=== PATIENT | female | born 1990 | race Caucasian/White ===

== ENCOUNTER 2017-02-08 05:56 | Inpatient (IN) | payer MEDICAID ==
[~2017-02-08] VITALS: Ht 154.9 cm; Wt 66.4 kg
--- NOTE | ~2017-02-08 | DS ---
PATIENT'S NAME: NICOLETTE CUETO [facility] AGE: 26 Y [address] ROOM: [address] [address] LOCATION: BS ADMIT DATE: 02/08/2017 Discharge Summary DISCHARGE DATE: 02/11/2017 FAMILY PHYSICIAN: ATTENDING PHYSICIAN: Andrew Danielson CORRECTED WORK TYPE 03/13/17 AO DISCHARGE DIAGNOSES: 1. Status post section. 2. Placenta previa. 3. Thirty-six week intrauterine . 4. History of delivery. REASON FOR ADMISSION: Scheduled section. Operations during admission, primary low-transverse section. HOSPITAL COURSE: The patient is a 26-year-old female, who presented to Labor and Delivery at 36 weeks 6 days for scheduled section. She had a known placenta previa. She underwent a primary low transverse section without complications. Postoperatively, she did well. Her Gaviria catheter was removed. She is ambulating, urinating, and tolerating p.o. and desired to be discharged home on postoperative day #3. Her baby did require admission to the NICU for prematurity and IV antibiotics. DISCHARGE MEDICATIONS: Please see discharge MAR. INSTRUCTIONS: The patient was instructed no lifting greater than 15 pounds for 4 to 6 weeks[address] No [address] while on narcotics. Nothing in vagina for 6 weeks. She was also instructed to call for fever greater than 100.4, pain not controlled with pain medications, or if any area of her incision becomes red or looks affected. FOLLOWUP: The patient will follow up in 2 weeks for check with Dr. Danielson. MD VIELKA HOFFMAN/perlita /[id number] CORRECTED WORK TYPE 03/13/17 AO d: 02/28/17 1138 t: 03/16/17 1340, DISCHARGE SUMMARY
--- NOTE | ~2017-02-08 | OR ---
PATIENT'S NAME: NICOLETTE CUETO [facility] AGE: 26 Y [address] ROOM: [place] [address] LOCATION: GOBS ADMIT DATE: 02/08/2017 OR/Procedure Report DISCHARGE DATE: FAMILY PHYSICIAN: BARI COMER ATTENDING PHYSICIAN: ANDREW DANIELSON SURGEON: Andrew Danielson MD DRILL OPERATOR PNEUMATIC: Jessica Gallego MD DATE OF PROCEDURE: 02/08/2017 PREOPERATIVE DIAGNOSES: 1. Intrauterine , 36 weeks 6 days. 2. Placenta previa. POSTOPERATIVE DIAGNOSES: 1. Intrauterine , 36 weeks 6 days. 2. Placenta previa. PROCEDURE PERFORMED: Primary low transverse section. ANESTHESIA: Spinal. FINDINGS: Viable male with score of 8 and 9 and weight of 7 pounds 5 ounces. Posterior placenta previa. Placenta intact with 3-vessel cord. Normal uterus. Normal ovaries and fallopian tubes bilaterally. ESTIMATED BLOOD LOSS: 800 mL. COMPLICATIONS: None. INDICATIONS: The patient is a 26-year-old female with intrauterine 36 weeks 6 days, who presented to Labor and Delivery for scheduled secondary to known posterior placenta previa. The patient was counseled prior to the procedure. The risks including bleeding, infection, damage to surrounding organs and tissue including bowel, bladder, blood vessels, ureters, nerves. She is also counseled of needing additional procedures or hospitalizations due to any complications. DESCRIPTION OF PROCEDURE: The patient was taken operating room where spinal anesthesia was placed without complication. She was placed in dorsal supine position with leftward tilt. A Gaviria catheter was placed. She was then prepped and draped in the usual sterile fashion. A time-out was performed. Anesthesia was found to be adequate. A scalpel was used to make a Pfannenstiel incision and carried down to the underlying fascia. The fascial incision was scored. The fascial incision was then extended bilaterally with Marquez scissors. Promise's were then used to grasp the anterior aspect of the PATIENT'S NAME: NICOLETTE CUETO [facility] AGE: 26 Y [address] ROOM: [place] [address] LOCATION: [facility] ADMIT DATE: 02/08/2017 OR/Procedure Report DISCHARGE DATE: FAMILY PHYSICIAN: PHYSICIAN, NO ATTENDING PHYSICIAN: ANDREW DANIELSON fascia. It was dissected bluntly and sharply off the rectus muscles. The same was performed inferiorly. The rectus muscles were then in the midline. The peritoneum was identified and entered bluntly. The peritoneal incision was then extended. The bladder blade was placed for visualization. The scalpel was then used to make a transverse incision in the lower uterine segment. This was extended in a cephalad caudal direction. Artificial rupture of membranes was performed. The head was then delivered followed by the remainder of the fetus. The mouth and nose were bulb suctioned. The cord was then clamped and cut. Infant was taken to the waiting delivery team. Cord blood was obtained. The placenta was then expressed intact. There was noted to be some bleeding from the posterior aspect of the endometrium and uterine rivera where the placenta was attached in the lower uterine segment. Pressure was placed on this. Pitocin was already going. The patient received 0.2 mg of Methergine. The hysterotomy was then closed in a running locked fashion with 0 Chromic suture. Hemostasis was noted. The uterus was replaced into the abdominal cavity. Clots were removed. The hysterotomy was reexamined and hemostasis was again noted. The lower uterine segment was not noted to be filling with blood. The rectus muscles and fascia were inspected and noted to be hemostatic. The fascia was then closed in a running fashion using 0 Vicryl suture. The subcutaneous tissue was irrigated and any areas of bleeding were cauterized. The skin was then closed with 4-0 Monocryl in a subcuticular fashion, Steri-Strips, and a pressure dressing. Instrument, sponge, needle counts were correct prior to abdominal closure at the conclusion of the case. DISPOSITION: Mom stable. Baby in room with mom. MD VIELKA HOFFMAN/perlita /[id number] d: 02/08/17 1426 t: 02/11/17 1704, OPERATIVE SUMMARY
[~2017-02-08 05:56] MED LIST: ACETAMINOPHEN325 MG PO; PHENERGAN25 M1 PO; PRENATAL 1+1)(P1 TAB PO; SUDAFED30 MG PO
[2017-02-08 07:00] LABS: BASOPHIL # 0.1 K/uL (0.0-0.2); BASOPHIL % 0.4 %; EOSINOPHIL # 0.2 K/uL (0.0-0.5); EOSINOPHIL % 1.7 %; HEMATOCRIT 31.5 % (33.0-46.0); HEMOGLOBIN 10.5 g/dL (11.0-15.0); IMMATURE GRANULOCYTE # 0.2 K/uL (0.0-0.3); IMMATURE GRANULOCYTE % 1.5 %; LYMPHOCYTE # 2.9 K/uL (0.8-4.0); LYMPHOCYTE % 21.1 %; MCH 31.3 pg (27.0-34.0); MCHC 33.3 gm/dL (32.0-36.5); MCV 93.8 fl (83.0-98.0); MONOCYTE # 1.2 K/uL (0.0-1.0); MONOCYTE % 8.7 %; MPV 9.1 fl (9.4-12.4); NEUTROPHIL # (ANC) 9.2 K/uL (1.8-7.8); NEUTROPHIL % 66.6 %; NRBC % 0 /100WBC (0-0.00); PLATELET COUNT 633 K/uL (150-450); RBC 3.36 M/uL (3.50-5.00); RDW-CV 12.7 % (11.9-14.6); WBC 13.8 K/uL (4.0-11.0)
--- NOTE | 2017-02-08 17:01 | NUR ---
Last VS: T:97.9 P:82 R: 16 BP: 102/60 Pain ratin-4 Last pain med: Percocet Medicated at: 1341 Effective: Yes R Lung sounds: , L Lung sounds: Fundus: FIRM Lochia: SMALL-MOD Breasts: SOFT Nipples: INTACT Incision: , Incision appearance: DRSG ON Incision closure: Bowel sounds: Passing flatus: N Voiding well: Y Significant event: *.FRIAS DC'D AT 1600 W/400ML ORANGE URINE OUT. IV SALINED LOCKED. TO NICU TO SEE BABY AT 1715
--- NOTE | 2017-02-09 03:26 | NUR ---
Last VS: T:97.5 P:72 R: 14 BP: 108/66 Pain ratin. Last pain med: 2 NORCO Medicated at: 0307 Effective: Partial relief R Lung sounds: clear, L Lung sounds: clear Fundus: firm, midline Lochia: small, rubra Breasts: soft Nipples: intact/tender Incision: low, transverse Incision appearance: Dressing CDI Incision closure: Bowel sounds: hypoactive Passing flatus: no Voiding well: voids well on own Significant event: VSS, walks to NICU to see babe, pumps, cert turned in, paternity papers in room--needs notarized. Independent with cares
[2017-02-09 05:26] LABS: BASOPHIL # 0.1 K/uL (0.0-0.2); BASOPHIL % 0.5 %; EOSINOPHIL # 0.2 K/uL (0.0-0.5); EOSINOPHIL % 1.3 %; HEMATOCRIT 30.2 % (33.0-46.0); HEMOGLOBIN 9.9 g/dL (11.0-15.0); IMMATURE GRANULOCYTE # 0.1 K/uL (0.0-0.3); IMMATURE GRANULOCYTE % 0.7 %; LYMPHOCYTE # 2.7 K/uL (0.8-4.0); LYMPHOCYTE % 19.5 %; MCH 31.1 pg (27.0-34.0); MCHC 32.8 gm/dL (32.0-36.5); MONOCYTE # 1.6 K/uL (0.0-1.0); MONOCYTE % 11.8 %; NEUTROPHIL % 66.2 %; NRBC % 0 /100WBC (0-0.00); PLATELET COUNT 608 K/uL (150-450); RBC 3.18 M/uL (3.50-5.00); RDW-CV 12.6 % (11.9-14.6); WBC 13.6 K/uL (4.0-11.0)
--- NOTE | 2017-02-09 15:05 | NUR ---
Consult received to meet with mom and significant other. Met with Lia today at bedside. Introduced myself and the role of the CM department. Lia (Esa) has an extensive mental health history with PTSD, Bipolar, Manic Depressive, and Schizophrenic tendencies when in Manic state. She has a history of addiction to marijuana, but has been clean for 6 years. She has 3 other boys that she no longer has custody of her older boys. Stoney and Jose Juan have been adopted and live in [place]. She states that she still has joint custody with Houston who is 4 and lives in [place] with his biological father, but that she has not seen him in one year due to finances. I also met with LINDSAY Rivera. Krishna was very upset earlier today because he found out that he cannot be listed on the certificate because Lia is still legally to a man in [place]. This man is not the father of any of her children. They both state that they are going to get a program support specialist to help with the divorce process. I instructed them to contact Medicaid and inform them of Lucio's . I also provided her with information on community resources in the [facility]. I discussed signs and symptoms of post depression and provided her with reading material to refer to. She states that her mom is currently staying at the [facility] and is going to be here to help support them while Lucio is in the NICU. Lia and Krishna state they have all necessary items for baby. Will continue to follow and offer supports as needed.
--- NOTE | 2017-02-09 18:00 | NUR ---
02/09/17 1745: In Nicu @ intervals. VSS. Last [place] @ 1219. Sia @ 6398. Nicoderm patch on. Will have repeat cbc in am,Platelets 600+. Low abd. inc. Intact w/ suture and steri. Passing gas. Breastpump equipment in room. Vss.
--- NOTE | 2017-02-10 05:33 | NUR ---
VSS. Pt independent and walking the halls. Fundus firm and midline. Pt states passing gas. Steri-strips to ABD. Dry and intact. 2Norco and Mortin at 0144. SL to Right wrist. Pt pumping, will walk to NICU to see baby.
[2017-02-10 05:59] LABS: BASOPHIL # 0.1 K/uL (0.0-0.2); BASOPHIL % 0.6 %; EOSINOPHIL # 0.3 K/uL (0.0-0.5); EOSINOPHIL % 2.6 %; HEMATOCRIT 27.4 % (33.0-46.0); IMMATURE GRANULOCYTE # 0.1 K/uL (0.0-0.3); IMMATURE GRANULOCYTE % 1.1 %; LYMPHOCYTE # 3.7 K/uL (0.8-4.0); LYMPHOCYTE % 32.3 %; MCH 30.9 pg (27.0-34.0); MCHC 32.8 gm/dL (32.0-36.5); MCV 94.2 fl (83.0-98.0); MONOCYTE # 1.2 K/uL (0.0-1.0); MONOCYTE % 10.5 %; MPV 9.1 fl (9.4-12.4); NEUTROPHIL % 52.9 %; NRBC % 0 /100WBC (0-0.00); PLATELET COUNT 566 K/uL (150-450); RBC 2.91 M/uL (3.50-5.00); RDW-CV 12.7 % (11.9-14.6); WBC 11.4 K/uL (4.0-11.0)
--- NOTE | 2017-02-10 17:49 | NUR ---
Last VS: T:98.5 P:75 R: 14 BP: 94/51 Pain ratin-5 Last pain med: Stambaugh(1) Medicated at: 1542 Effective: Yes R Lung sounds: , L Lung sounds: Fundus: FIRM Lochia: SMALL Breasts: FILLING Nipples: TENDER, LANOLIN OINT GIVEN Incision appearance: APPROXIMATED Incision closure: PFANNENSTEIL C/S INC Bowel sounds: Passing flatus: Y Voiding well: Y Significant event: *.UP AD JACKIE, BACK & FORTH TO NICU TO SEE/FEED BABY. STAYING UNTIL TMRW.
[2017-02-11] MEDS ORDERED: APNO TOP (13:28)
[2017-02-11] MEDS ORDERED: MOTRIN800 MG PO (13:29)
[2017-02-11] MEDS ORDERED: NORCO 5-325 TA1 EACH PO (13:31)
== END 2017-02-11 16:10 | disposition disaster alternative care site (69) | DRG 766 ==
LOC: GOBS 05:56
PROVIDERS: ADMIT Obstetrics & Gynecology
PROC: 10D00Z1 Extraction of Products of Conception, Low, Open Approach (ICD-10-PCS; principal; 2017-02-08)
DX: O44.03 Complete placenta previa NOS or without hemorrhage, third trimester (principal); Z37.0 Single live birth; Z3A.36 36 weeks gestation of pregnancy
CPT/HCPCS: J0690; J1885; J2210; J7120

== ENCOUNTER 2017-03-23 02:49 | Day surgery (SDC) | payer MEDICAID ==
[~2017-03-23] VITALS: Ht 152.4 cm; Wt 54.9 kg
--- NOTE | ~2017-03-23 | ER ---
PATIENT'S NAME: NICOLETTE CUETO [facility] AGE: 26 Y [address] ROOM: [place] [address] LOCATION: [facility] [place] ADMIT DATE: 03/23/2017 ER/Outpatient Report DISCHARGE DATE: FAMILY PHYSICIAN: PHYSICIAN, NO ATTENDING PHYSICIAN: Delphine LONGORIA (Jethro) CHIEF COMPLAINT: Abdominal pain. HISTORY OF PRESENT ILLNESS: The patient developed a right-sided abdominal pain with nausea starting last evening. It began to worsen throughout the night, she ultimately came in. She did have a 6 weeks ago and has had some pain at the right aspect of her scar, but this feels different to her. She denies any fevers with this, but has had some nausea. No other acute issues. No other abdominal surgeries. Denies any change in bowel or bladder habits. No other acute issues. She did start the control patch recently. She states she has not been sexually active since her . PAST MEDICAL HISTORY: Documented on the record and reviewed by me. SOCIAL HISTORY: Documented on the record and reviewed by me. MEDICATIONS: Documented on the record and reviewed by me. ALLERGIES: DOCUMENTED ON THE RECORD AND REVIEWED BY ME. REVIEW OF SYSTEMS: All systems reviewed and negative except as noted in the HPI. PHYSICAL EXAMINATION: VITAL SIGNS: Blood pressure 130/74, pulse 69, respiratory rate is 18, temperature 98.0, and SpO2 is 98% on room air. Pain is rated 8/10. GENERAL: Age-appropriate female, obvious discomfort on the left lateral decubitus position on the exam table, in no obvious pain or distress. NEURO: The patient is awake and alert. GCS 15. No focal deficits. No obvious asymmetry. HEENT: Normocephalic, atraumatic. Eyes are PERRL. Oropharynx is clear. NECK: Supple. Trachea is midline. CHEST: Heart has regular rate and rhythm. No murmurs. Lungs are clear to PATIENT'S NAME: NICOLETTE CUETO [facility] AGE: 26 Y [address] ROOM: [address] [address] LOCATION: [facility] [place] ADMIT DATE: 03/23/2017 ER/Outpatient Report DISCHARGE DATE: FAMILY PHYSICIAN: PHYSICIAN, NO ATTENDING PHYSICIAN: LAKS,Shachar (Jethro) auscultation bilateral with no rhonchi, wheezes, or rales. ABDOMEN: Notable for marked tenderness with no masses in the right lower quadrant. Pain is most prominent at McBurney's point. Obturator and psoas signs are equivocal. There is no rebound directly. Guarding is minimal. BACK: Normal to inspection and palpation. No CVA tenderness. EXTREMITIES: Warm and well perfused. No abnormalities or deformities. SKIN: Clean, dry, and intact. LABORATORY DATA AND X-RAYS: CT of the abdomen is concerning for appendicitis. Labs: CMS without appreciable abnormality other than a CO2 of 13.9. Renal function and LFTs within appropriate limits. Amylase and lipase are not elevated. HCG is below detectable threshold. White count is elevated at 15.1, hemoglobin 12.8, platelets of 386. INR is below 1. IMPRESSION: Appendicitis. EMERGENCY DEPARTMENT COURSE: The patient is diagnosed with appendicitis on exam and imaging. Urinalysis was pending. The patient clinically has appendicitis, CT confirms. She will be taken to the operating room by Dr. Longoria for further evaluation and treatment. Symptoms were managed with Zofran and 2 doses of fentanyl, which helped to control her pain. She remained otherwise stable and was taken to the OR in good condition. MD DAPHNE THAYER/perlita /[id number] d: 03/23/17 08 t: 03/28/17 0952, OUTPATIENT REPORT
--- NOTE | ~2017-03-23 | OR ---
PATIENT'S NAME: NICOLETTE CUETO [facility] AGE: 26 Y [address] ROOM: [place] [address] LOCATION: [facility] [place] ADMIT DATE: 03/23/2017 OR/Procedure Report DISCHARGE DATE: FAMILY PHYSICIAN: PHYSICIAN, NO ATTENDING PHYSICIAN: Delphine LONGORIA (Jethro) SURGEON: Delphine Longoria MD (Jake) PRODUCTION UNDERWRITER: DATE OF PROCEDURE: 03/23/2017 PREOPERATIVE DIAGNOSIS: Acute appendicitis. POSTOPERATIVE DIAGNOSIS: Acute appendicitis. PROCEDURE PERFORMED: Laparoscopic appendectomy. ANESTHESIA: General endotracheal anesthesia. COMPLICATIONS: None. ESTIMATED BLOOD LOSS: Minimal. DRAINS: None. FINDINGS: Early acute nonperforated appendicitis. SPECIMENS: Appendix. PQRI: SCDs were placed on prior to the case and were on throughout. Chemoprophylaxis for DVT was not indicated given this very brief operation and completely ambulatory patient. INDICATIONS FOR PROCEDURE: A 26-year-old woman with 1-day history of right lower quadrant abdominal pain that was clinically and radiographically suspicious for acute appendicitis. She presents for laparoscopic appendectomy. DETAILS OF PROCEDURE: After informed consent was obtained, the patient was brought to the operating room and placed in supine position. All pressure points were padded. The left arm was tucked. General endotracheal anesthesia was induced. The abdomen was prepped and draped in usual sterile fashion. A supraumbilical 5-mm incision was made after 0.5% Marcaine with epi was introduced into the wound. A 5-mm bladeless trocar introduced into the abdominal cavity under direct vision from the Optiview port by 5-mm 0-degree scope. Pneumoperitoneum was achieved. Abdominal cavity was inspected. No other abnormalities could be noted. An additional 12-mm suprapubic trocar was PATIENT'S NAME: NICOLETTE CUETO [facility] AGE: 26 Y [address] ROOM: [place] [address] LOCATION: [facility] [place] ADMIT DATE: 03/23/2017 OR/Procedure Report DISCHARGE DATE: FAMILY PHYSICIAN: PHYSICIAN, NO ATTENDING PHYSICIAN: Delphine LONGORIA) placed through the previous incision under direct visualization from the laparoscope as was a left lower quadrant 5-mm trocar under direct visualization from the laparoscope taking great care not to injure any intraabdominal structures. The abdominal cavity was inspected. No other abnormalities were noted. The appendix was identified and noted to be mildly and acutely inflamed without perforation. It was elevated towards the anterior abdominal wall. A window was created at the base of the mesoappendix with the [place] dissector. An Lowden 45-mm stapler with a GI load was then fired across the base of the appendix at the junction with the cecum and a very brief burst of electrocautery was used to achieve hemostasis on the staple line taking great care to only use the electrocautery for very brief period of time on low setting. Hemostasis was achieved and an Lowden 45-mm stapler on the mesoappendix was then fired and the staple line was carefully inspected. No bleeding could be noted. The appendix was placed in the Endopouch and removed via the suprapubic trocar site. Trocar reintroduced and pneumoperitoneum reachieved. The abdominal cavity was thoroughly irrigated until return of clear effluent. The rest of the abdominal cavity was inspected. The uterus was inspected and was normal. There were other abnormalities noted. Irrigations through all quadrants until return of clear effluent was performed. Thus, both staple lines were carefully inspected and were noted to be hemostatic. An 0 Vicryl suture on a suture passer was then used to close the suprapubic trocar site under direct visualization from the laparoscope. No bleeding could be noted. Left lower quadrant trocars were removed under direct visualization from the laparoscope. No bleeding could be noted. Pneumoperitoneum was decompressed. Last trocar was removed and all the wounds were closed with 4-0 Monocryl subcuticular suture. Sterile dressing was applied. The patient was awakened and taken back to recovery in stable condition. MD DEREK TALAVERA (JAKE)/perlita /[id number] d: t: 03/23/17 0750, OPERATIVE SUMMARY
--- NOTE | ~2017-03-23 | DS ---
PATIENT'S NAME: ESA CUETO [facility] AGE: 26 Y [address] ROOM: [place] [address] [place] [facility] [place] DATE: 03/23/2017 Discharge Summary DISCHARGE DATE: 03/23/2017 FAMILY PHYSICIAN: , BARI ATTENDING PHYSICIAN: Delphine ROBBINS) [facility] COURSE: Esa was admitted on 03/23/2017 with 1-day history of right lower quadrant abdominal pain that was clinically and radiographically significant for acute appendicitis. She underwent a laparoscopic appendectomy. Postoperatively, she was feeling well. She was tolerating a diet. She was tolerating her pain with p.o. pain medications. She was voiding and ambulating independently and she was ready for discharge. She was given appropriate followup discharge instructions as well as prescription for narcotic pain medications. FINAL DIAGNOSIS: Acute appendicitis. JOSE DE JESUS) MD DEREK ROBBINS/perlita /[id number] d: t: 03/26/17 0931, DISCHARGE SUMMARY
--- NOTE | ~2017-03-23 | HP ---
PATIENT'S NAME: NICOLETTE CUETO [facility] AGE: 26 Y [address] ROOM: [address] [place], [place] [address] LOCATION: [facility] ADMIT DATE: 03/23/2017 History & Physical DISCHARGE DATE: FAMILY PHYSICIAN: PHYSICIAN, NO ATTENDING PHYSICIAN: Delphine ROBBINS (Saurabh) DATE OF SERVICE: 03/23/2017 CHIEF COMPLAINT: Abdominal pain. HISTORY OF PRESENT ILLNESS: This is a 26-year-old woman who was in her usual state of health until last night at 8:30 p.m. She had a sudden onset of right lower quadrant pain which she describes as sharp in quality and severe intensities persisted overnight and she came into the emergency room with these complaints. She does admit to associated nausea, but no associated vomiting. She denies any aggravating or alleviating conditions. She does not have an associated fever. She denies having pain of this type before. She had a normal bowel movement early this morning with the exception of straining is not at all painful or abnormal. No melena or hematochezia. No vomiting. She last ate at 8 o'clock last night. She is 6 weeks post . ALLERGIES: SHE IS ALLERGIC TO PERCOCET THAT GIVES HER HIVES AND SHORTNESS OF BREATH. SHE HAS A LONG LIST OF ALLERGIES, BUT NO ANTIBIOTICS AND NO OTHER PAIN MEDICATIONS. PLEASE SEE HOSPITAL LIST FOR COMPLETE LIST OF ALLERGIES. MEDICATIONS: She does not take any chronic medications except for patch for contraceptives. PAST MEDICAL HISTORY: She has had a previous and 5 pregnancies. She denies any cardiac, pulmonary, hepatic, renal disease or dysfunction. SOCIAL HISTORY: She smokes half a pack per day and has done so for the last 14 years. She drinks alcohol socially. She is engaged to be . Her fiance is here with her. She does have 1 child at home. Her other children do not live with her. REVIEW OF SYSTEMS: Full 10-point review of systems was discussed with the patient and was negative except for as discussed above. Specifically, she denies any chest PATIENT'S NAME: NICOLETTE CUETO [facility] AGE: 26 Y [address] ROOM: [address] [address] LOCATION: [facility] [place] ADMIT DATE: 03/23/2017 History & Physical DISCHARGE DATE: FAMILY PHYSICIAN: PHYSICIAN, NO ATTENDING PHYSICIAN: Delphine ROBBINS (Saurabh) pain, shortness of breath or vomiting. PHYSICAL EXAMINATION: VITAL SIGNS: Afebrile. Vital signs are stable. HEENT: Sclerae anicteric. NECK: Supple. HEART: Rate and rhythm regular. Breathing nonlabored. ABDOMEN: Soft, nondistended, tender to palpation on the right lower quadrant. No guarding. Positive Rovsing sign. Positive obturator sign. Her scar is well healed. No palpable hernias. EXTREMITIES: Bilateral lower extremities are warm. Brisk capillary refill without evidence of significant edema. No obvious calf tenderness or swelling. SKIN: No obvious skin lesions or rashes. RADIOLOGY REVIEW: CT scan of the abdomen and pelvis shows changes of uterus. The appendix is fluid-filled, mildly thickened with some inflammatory changes around it. It is only mildly dilated about 8 mm at most, but is suggestive of early acute appendicitis. No evidence of bowel obstruction. No evidence of other abnormalities. LABORATORY EVALUATION: [place] [address]. Remainder of the CBC and CMP are unremarkable. Her urine test was negative. ASSESSMENT AND PLAN: A 26-year-old woman with 1-day history of right lower quadrant abdominal pain clinically and radiographically suggestive of acute appendicitis. We discussed the indications for laparoscopic appendectomy. Discussed alternatives such as antibiotic administration only, and the risks and benefits of each of these approaches. We discussed the risks of surgery including infection, bleeding, damage to surrounding structures, need for further procedures, conversion to open amongst others. We also discussed the possibility of even negative appendectomy and the fact that we would take out the appendix any ways to remove any future diagnostic dilemma. Her and her fiance had all their questions answered to their satisfaction and wished to proceed as above. DELPHINE(SAURABH) MD DEREK ROBBINS/perlita PATIENT'S NAME: NICOLETTE CUETO [facility] AGE: 26 Y [address] ROOM: [place] [address] LOCATION: [facility] ADMIT DATE: 03/23/2017 History & Physical DISCHARGE DATE: FAMILY PHYSICIAN: PHYSICIAN, NO ATTENDING PHYSICIAN: Delphine ROBBINS (Saurabh) /[id number] D: T: [id number] HISTORY & PHYSICAL
[~2017-03-23 02:49] MED LIST changes: +APNO TOP; +MOTRIN800 MG PO; +NORCO 5-325 TA1 EACH PO
[2017-03-23 03:43] LABS: BASOPHIL # 0.1 K/uL (0.0-0.2); BASOPHIL % 0.5 %; EOSINOPHIL # 0.1 K/uL (0.0-0.5); EOSINOPHIL % 0.5 %; HEMOGLOBIN 12.8 g/dL (11.0-15.0); IMMATURE GRANULOCYTE # 0.1 K/uL (0.0-0.3); IMMATURE GRANULOCYTE % 0.3 %; LYMPHOCYTE # 3.1 K/uL (0.8-4.0); LYMPHOCYTE % 20.8 %; MONOCYTE # 0.9 K/uL (0.0-1.0); MONOCYTE % 5.8 %; MPV 9.6 fl (9.4-12.4); NEUTROPHIL # (ANC) 10.9 K/uL (1.8-7.8); NEUTROPHIL % 72.1 %; NRBC % 0 /100WBC (0-0.00); RDW-CV 13.2 % (11.9-14.6); WBC 15.1 K/uL (4.0-11.0)
[2017-03-23 03:46] LABS: HEMATOCRIT 40.1 % (33.0-46.0); MCH 30.3 pg (27.0-34.0); MCHC 31.9 gm/dL (32.0-36.5); PLATELET COUNT 386 K/uL (150-450); RBC 4.22 M/uL (3.50-5.00)
[2017-03-23 03:50] LABS: BILIRUBIN URINE NEGATIVE (NEGATIVE); BLOOD URINE NEGATIVE /UL (NEGATIVE); GLUCOSE URINE NEGATIVE (NEGATIVE); KETONE URINE NEGATIVE (NEGATIVE); LEUKOCYTES URINE NEGATIVE /UL (NEGATIVE); NITRITE URINE NEGATIVE (NEGATIVE); PROTEIN URINE NEGATIVE (NEGATIVE); UROBILINOGEN URINE NORMAL (NORMAL)
[2017-03-23 03:52] LABS: INR - (THERAPEUTIC) 0.97 (0.92-1.07); PROTIME 10.2 SECONDS (9.8-11.4); PTT 27 SECONDS (25-32)
[2017-03-23 03:54] LABS: COLOR URINE YELLOW (YELLOW); TURBIDITY URINE CLEAR (CLEAR)
[2017-03-23 04:06] LABS: ALBUMIN 3.8 gm/dL (3.5-5.0); ALK PHOS 113 IU/L (33-138); ALT 35 IU/L (12-78); ANION GAP 13.9 (10.0-19.0); AST 23 IU/L (10-40); BLOOD UREA NITROGEN 20 mg/dL (6-24); CALCIUM 8.8 mg/dL (8.5-10.5); CHLORIDE 109 mMol/L (96-110); CO2 21 mMol/L (22-32); ESTIMATED GFR (MDRD EQUATION) > 60; POTASSIUM 3.9 mMol/L (3.7-5.1); SODIUM 140 mMol/L (135-145); TOTAL BILIRUBIN 0.4 mg/dL (0.0-1.5); TOTAL PROTEIN 7.1 g/dL (6.0-8.4)
[2017-03-23] MEDS ORDERED: TYLENOL EXTRA500 MG PO (10:12)
[2017-03-23] MEDS ORDERED: XULANE PATCH1 EACH TRANS (10:35)
--- NOTE | 2017-03-23 12:55 | NUR ---
In morning huddle patient had just arrived back to the floor following the appy surgical procedure. Plan is for patient to discharge to home later today or evening if she tolerates food okay.
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
[2017-03-23] MEDS ORDERED: NORCO 5-325 TA1 EACH PO (15:21)
--- NOTE | 2017-03-23 16:00 | NUR ---
DISCHARGE: Pt. and father were explained discharge instructions, d/c instructions for lap appy, and medication education on norco. Verbalized understanding, no questions or concerns. Left with all belongings and prescriptions. IV removed by primary nurse. Taken to front door by aide and driven home by father.
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
== END 2017-03-23 16:15 | disposition disaster alternative care site (69) ==
LOC: GMED 02:49 → GMSU 05:28 → GMED 05:28 → GSDC 05:28 → GMSU 16:15
PROVIDERS: Emergency Medicine
PROC: 0DTJ4ZZ Resection of Appendix, Percutaneous Endoscopic Approach (ICD-10-PCS; principal; 2017-03-23)
DX: K35.80 Unspecified acute appendicitis (principal); F17.210 Nicotine dependence, cigarettes, uncomplicated; Z88.8 Allergy status to other drugs, medicaments and biological substances; Z98.890 Other specified postprocedural states
CPT/HCPCS: J1335; J1885; J2405; J3010; J7030; Q9967